=== PATIENT | male | born 1985 | race Hispanic/Latino ===

== ENCOUNTER 2017-05-27 20:13 | Emergency (ER) | payer BC, OTHER ==
[2017-05-27] MEDS ORDERED: Mag-Al Plus 1200 MG/1200 MG/120 MG/30 ML UDCUP ONE (20:42)
[2017-05-27] MEDS ORDERED: Lidocaine Viscous Sol 2% 15 ml UD Cup ONE (20:42)
== END 2017-05-27 20:58 | disposition home or self-care (01) ==
LOC: SCSER 20:13
DX: K21.9 Gastro-esophageal reflux disease without esophagitis (principal); F17.210 Nicotine dependence, cigarettes, uncomplicated; Z79.899 Other long term (current) drug therapy
CPT/HCPCS: 99283

== ENCOUNTER 2017-06-13 09:51 | Outpatient (CLI) | payer BC ==
--- NOTE | 2017-06-13 12:05 | RAD ---
BARIUM SWALLOW: DATE: 06/13/17. COMPARISON: None. HISTORY: Dysphagia, GERD, and sore throat. FINDINGS: Esophagus is normal in course and contour. [employer] imaging is unremarkable aside from mild elevation o f the left hemidiaphragm. No gastroesophageal reflux could be elicited during this examination. No hiatal hernia is seen. Peristalsis appears normal. Four-second frame imaging over the upper esophag us is unremarkable. Incidental note is made of flash penetration. IMPRESSION: Grossly unremarkable barium swallow. POS: [facility]
== END 2017-06-13 09:52 | disposition home or self-care (01) ==
LOC: RAD 09:51
PROVIDERS: ATTEND Internal Medicine Gastroenterology
DX: K21.9 Gastro-esophageal reflux disease without esophagitis (principal); J02.9 Acute pharyngitis, unspecified; R13.10 Dysphagia, unspecified
CPT/HCPCS: 74220

== ENCOUNTER 2017-11-24 09:18 | Outpatient (CLI) | payer BC ==
--- NOTE | 2017-11-24 10:35 | ULT ---
RIGHT UPPER QUADRANT ULTRASOUND: DATE: 11/24/17. COMPARISON: None. HISTORY: Epigastric pain. TECHNIQUE: Multiplanar, conroy scale, sonographic imaging of the right upper quadrant obtained. FINDINGS: The imaged pancreas is unremarkable. The distal body and tail are obscured by bowel gas. The hepatic parenchyma is heterogeneous and echogenic, suggesting hepatocellular disease, such as hep atic steatosis. No gallbladder wall thickening or pericholecystic fluid. No gallstones are noted. The common bile d uct measures 3 mm, within normal limits. The right kidney measures 11.6 cm in craniocaudal dimension and demonstrates no stone, hydronephrosis , or mass lesion. IMPRESSION: 1. Findings suggesting hepatic steatosis. 2. No evidence for cholelithiasis, cholecystitis, or biliary dilatation. POS: [facility]
== END 2017-11-24 09:19 | disposition home or self-care (01) ==
LOC: SCSULT 09:18
PROVIDERS: ATTEND Internal Medicine Gastroenterology
DX: R10.13 Epigastric pain (principal); K21.9 Gastro-esophageal reflux disease without esophagitis; R14.0 Abdominal distension (gaseous)
CPT/HCPCS: 76705